=== PATIENT | female | born 1970 | race Caucasian/White ===

== ENCOUNTER 2016-07-16 13:59 | Emergency (ER) | payer OTHER ==
[~2016-07-16] VITALS: Ht 170.2 cm; Wt 80.0 kg
[~2016-07-16 13:59] MED LIST: AMOX500C PO; BIOT50005 PO; CALCTAB80 PO; CRYS28TA PO; FLUC150T PO; MAGN500T4 PO; MULTTAB6; OMEP20CA2; PRED20 PO; RANI150C PO; SYNT112T PO; TOPA50TA7 PO; VITA10004 PO; VITA10007 PO; ZYRT10TA PO; [UNRECOGNIZED DRUG - CODE]
[2016-07-16 14:18] VITALS: BP 134/85; PULSE 72; RESP 16; TEMP 98.1; O2SAT 100
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
[2016-07-16] MEDS ORDERED: KETOROLAC TROMETHAMINE 60 MG/2 ML (IM) VIAL IM ONE (15:00)
[2016-07-16] MEDS ORDERED: ROBA750T PO (15:00)
[2016-07-16] MEDS ORDERED: IBUP800T23 PO (15:00)
[2016-07-16] MEDS ORDERED: ORPHENADRINE INJ 60 MG/2 ML AMP IM ONE (15:00)
[2016-08-11] MEDS ORDERED: LIOT5TAB3 PO (11:21)
[2016-08-11] MEDS ORDERED: CRYS28TA PO (11:48)
[2016-08-11] MEDS ORDERED: OMEP20CA2 PO (11:48)
[2016-08-11] MEDS ORDERED: TOPA50TA7 PO (11:48)
== END 2016-07-16 15:53 | disposition home or self-care (01) ==
LOC: PHEFT 13:59
DX: S16.1XXA Strain of muscle, fascia and tendon at neck level, initial encounter (principal); V43.52XA Car driver injured in collision with other type car in traffic accident, initial encounter; Y92.488 Other paved roadways as the place of occurrence of the external cause
CPT/HCPCS: 96372; 99283; J1885; J2360